=== PATIENT | female | born 1990 | race Caucasian/White ===

== ENCOUNTER 2022-08-27 17:55 | Emergency (ER) | payer OTHER ==
[2022-08-27 18:16] VITALS: RESP 16; TEMP 98.5; BMI 26.5
[2022-08-27] MEDS ORDERED: SODIUM CHLORIDE 0.9% 500 ML INFUS.BAG IV ONE (20:03)
[2022-08-27] MEDS ORDERED: ONDANSETRON 4 MG/2 ML VIAL IVPUSH ONE (20:03)
[2022-08-27] MEDS ORDERED: FAMOTIDINE 20 MG/50 ML IVPB 20 MG/50 ML MG IVPB ONE ×2 (20:04→20:33)
[2022-08-27] MEDS ORDERED: ONDANSETRON 4 MG/2 ML VIAL ONE (20:33)
[2022-08-27 20:53] LABS: BASO % 0.3 % (0-2.0); EOS % 5.6 % (0-4.5); HEMATOCRIT 43.9 % (32.4-45.2); HEMOGLOBIN 14.9 GM/dL (10.7-15.3); LYMPH % 21.1 % (8-40); MCH 27.1 pg (25.7-33.7); MCHC 33.9 g/dl (32.0-36.0); MEAN CELL VOLUME 79.9 fl (80-96); PLATELET COUNT 349 10^3/uL (134-434); RBC 5.49 M/mm3 (3.60-5.2); RDW 12.6 % (11.6-15.6); WHITE BLOOD COUNT 10.2 K/mm3 (4.0-10.0)
[2022-08-27 21:11] LABS: POTASSIUM 5.8 mmol/L (3.5-5.1)
[2022-08-27 21:13] LABS: CALCIUM 9.8 mg/dL (8.5-10.1)
[2022-08-27 21:14] LABS: BLOOD UREA NITROGEN 12.1 mg/dL (7-18)
[2022-08-27 21:17] LABS: CREATININE 0.8 mg/dL (0.55-1.3)
[2022-08-27 21:19] LABS: BILIRUBIN,TOTAL 0.6 mg/dL (0.2-1); TOT PROT 7.6 g/dl (6.4-8.2)
[2022-08-27 23:33] VITALS: BP 106/79; PULSE 78
== END 2022-08-27 23:36 | disposition home or self-care (01) ==
LOC: JER 17:55
PROC: 3E033GC Introduction of Other Therapeutic Substance into Peripheral Vein, Percutaneous Approach (ICD-10-PCS; principal; 2022-08-27)
PROC: 3E033GC Introduction of Other Therapeutic Substance into Peripheral Vein, Percutaneous Approach (ICD-10-PCS; 2022-08-27)
DX: K52.9 Noninfective gastroenteritis and colitis, unspecified (principal); R10.12 Left upper quadrant pain; R11.2 Nausea with vomiting, unspecified; R50.9 Fever, unspecified; R00.2 Palpitations; R19.7 Diarrhea, unspecified
CPT/HCPCS: 36415; 80053; 83690; 84703; 85025; 99284-25